=== PATIENT | female | born 1975 | race Caucasian/White ===

== ENCOUNTER 2016-09-23 23:16 | Emergency (ER) | payer BC ==
[~2016-09-23] VITALS: Ht 170.2 cm; Wt 78.3 kg
[2016-09-23] MEDS ORDERED: ADDE30CA3 PO (23:34)
[2016-09-23] MEDS ORDERED: ZOLO50TA PO (23:34)
[2016-09-24] MEDS ORDERED: ONDANSETRON 4MG/2ML VIAL (J2405) IV ONE (00:15)
[2016-09-24] MEDS ORDERED: MORPHINE 4 MG/ML 1ML SYRINGE IV PRN (00:15)
[2016-09-24] MEDS ORDERED: NS 1,000 ML IV ONE (00:15)
[2016-09-24] MEDS ORDERED: NITROGLYCERIN 0.4 MG SUBL TABLET As Ordered ONE (00:36)
[2016-09-24 00:56] LABS: BASO % 0.4 % (0.0-1.0); EOS # 0.1 K/mm3 (0.0-0.50); LARGE UNSTAINED CELL # 0.1 K/mm3 (0.0-0.4); LARGE UNSTAINED CELL % 1.5 % (0.0-4.0); LYMPH # 1.9 K/mm3 (1.5-4.5); LYMPH % 21.1 % (24.0-44.0); MEAN CORPUSCULAR HEMOGLOBIN 31.3 pg (27.0-33.0); MEAN CORPUSCULAR HGB CONC 33.9 g/dl (32.0-36.5); MEAN CORPUSCULAR VOLUME 92.4 fl (80.0-96.0); MONO # 0.3 K/mm3 (0.0-0.8); MONO % 3.9 % (0.0-5.0); NEUTROPHILS # 6.1 K/mm3 (1.8-7.7); PLATELET COUNT, AUTOMATED 244 k/mm3 (150-450); RED CELL DISTRIBUTION WIDTH 12.4 % (11.5-14.5); WHITE BLOOD COUNT 8.4 K/mm3 (4.0-10.0)
[2016-09-24] MEDS ORDERED: LIDOCAINE W/EPINEPHRINE 1% 20ML VIAL SC ONE (01:15)
[2016-09-24] MEDS ORDERED: BUPIVACAINE HCL 0.5% 10 ML VIAL SC ONE (01:15)
[2016-09-24] MEDS ORDERED: fentaNYL 100 MCG/2 ML INJECTION (J3010) IV ONE (01:15)
[2016-09-24 01:18] LABS: ANION GAP 8 MEQ/L (8-16); BLOOD UREA NITROGEN 9 MG/DL (7-18); CARBON DIOXIDE LEVEL 26 MEQ/L (21-32); CHLORIDE LEVEL 109 MEQ/L (98-107); CREATININE FOR GFR 0.66 MG/DL (0.55-1.02); GLOMERULAR FILTRATION RATE > 60.0 (>58); GLUCOSE, FASTING 93 MG/DL (70-105); POTASSIUM SERUM 3.7 MEQ/L (3.5-5.1); SODIUM LEVEL 143 MEQ/L (136-145)
--- NOTE | 2016-09-24 01:30 | REPUSA ---
HISTORY: Trauma. COMPARISON: Not provided. TECHNIQUE: Multiple thin section helically-acquired axially-displayed and helically acquired coronall y displayed computed tomographic images of the face are obtained from the mandible through the fronta l sinuses, with images obtained at soft tissue and bone window. 2D reformatted images were performed. FINDINGS: Normal bony mineralization. No fractures. Normal orbits. Normal, clear paranasal sinuses. Normal oral and nasal cavities. Normal infratemporal fossa and deep parapharyngeal spaces with normal muscles of mastication. Normal parotid and submandibular glands. Soft tissue edema/laceration overlying the left aspect of the mandible. IMPRESSION: No acute fracture. Soft tissue contusion/laceration overlying the left aspect of the mandible Thank you for your kind referral of this patient
[2016-09-24] MEDS ORDERED: PERC5TAB12 PO (02:10)
[2016-09-24 02:15] VITALS: BP 110/53
[2016-09-24] MEDS ORDERED: OXYCODONE/APAP 5MG/325MG(BULK FOR ED) 1 TABLET PO ONE (02:15)
== END 2016-09-24 02:28 | disposition home or self-care (01) ==
LOC: M ED 23:16
DX: S01.81XA Laceration without foreign body of other part of head, initial encounter (principal); W39.XXXA Discharge of firework, initial encounter; Y92.018 Other place in single-family (private) house as the place of occurrence of the external cause; Y93.89 Activity, other specified; Y99.8 Other external cause status; Z79.899 Other long term (current) drug therapy
CPT/HCPCS: 12011; 70486; 80048; 85025; 96374; 96375; 99283; G0480; J2405; J3010